=== PATIENT | male | born 1955 | race Caucasian/White ===

== ENCOUNTER 2018-07-06 17:27 | Emergency (ER) | payer BC, OTHER ==
[2018-07-06] MEDS: ACETAMINOPHEN 325 MG TAB PO (17:07)
[~2018-07-06 17:27] MED LIST: ISOVUE-370 76% 100ML VIAL (Q9967) As Ordered
== END 2018-07-06 18:32 | disposition home or self-care (01) ==
LOC: M ED 17:27
DX: M79.605 Pain in left leg (principal); I10 Essential (primary) hypertension; G43.909 Migraine, unspecified, not intractable, without status migrainosus; Z79.899 Other long term (current) drug therapy
CPT/HCPCS: Q9967

== ENCOUNTER → 2019-03-22 | Outpatient (REF) | payer OTHER ==
[~2019-03-22] MED LIST changes: +DULO1CAP6 PO; -ISOVUE-370 76% 100ML VIAL (Q9967) As Ordered; +LISI10TA4 PO; +PANT20TA2 PO
[2019-03-25 00:09] LABS: Lyme Disease IgG/IgM Antibodie <0.91 ISR (0.00-0.90); Lyme Disease IgM Ab Quantitati <0.80 index (0.00-0.79)
== END ==
LOC: M SFHCLERA 10:35
PROVIDERS: ATTEND Nurse Practitioner Family
DX: R21 Rash and other nonspecific skin eruption (principal)